=== PATIENT | male | born 1975 | race Caucasian/White ===

== ENCOUNTER 2021-12-17 19:19 | Inpatient (IN) ==
[2021-12-17] MEDS ORDERED: Acetaminophen 325 MG TABLET PO PRN (22:48)
[2021-12-17] MEDS ORDERED: Naloxone 0.4 MG/ML INJ IVP PRN (22:48)
[2021-12-17] MEDS ORDERED: Melatonin 3 MG TABLET PO PRN (22:48)
[2021-12-17] MEDS ORDERED: *HR* Dextrose 50 % in Water (Syg) 50 ML SYRINGE IVP PRN (22:54)
[2021-12-17] MEDS ORDERED: Dextrose 4 GM Chewable Tablets PO PRN ×2 (22:54)
[2021-12-17] MEDS ORDERED: D5% in Water 1,000 ML IVC PRN (22:54)
[2021-12-17] MEDS ORDERED: Ringers Solution, Lactated 1,000 ML IVC SCH (23:00)
[2021-12-17] MEDS ORDERED: 0.9 % Sodium Chloride 1,000 ML IVC SCH (23:00)
[2021-12-17] MEDS: *HR* OxyCODONE Immed Rel 5 MG TABLET PO PRN (23:53)
[2021-12-18 00:07] LABS: Bilirubin,Urine Negative (Negative); Blood,Urine Moderate (Negative); Clarity,Urine Ex.Turbid (Clear); Color,Urine Yellow (Yellow); Glucose,Urine (UA) Normal (Normal); Ketones,Urine Trace mg/dL (Negative); Leukocyte Esterase,Urine Large (Negative); Mucus,Urine Few per lpf (None-Few); Nitrite,Urine Negative (Negative); Protein,Urine 200 mg/dL (Neg-Trace); RBC,Urine 30-50 per hpf (0-3); Squamous Epithelial Cell,Urine Moderate per hpf (None-Few); Urobilinogen,Urine Normal (Normal); WBC,Urine TNTC per hpf (0-3)
[2021-12-18] MEDS: *HR* HYDROcodone/Acet 5/325 mg TABLET PO PRN ×3 (02:47→16:48)
[2021-12-18] MEDS: Ondansetron 4 MG/2 ML VIAL IVP PRN ×2 (02:48→13:33)
[2021-12-18 06:30] LABS: Basophils # 0.1 K/mcL (0.0-0.2); Basophils % 0.7 %; Eosinophils # 0.2 K/mcL (0.0-0.6); Eosinophils % 2.8 %; Hemoglobin 12.4 g/dL (12.9-16.9); Immature Granulocytes % 0.3 % (0-4); Lymphocytes # 2.1 K/mcL (0.6-4.6); Lymphocytes % 30.2 %; Mean Corpuscular HGB Conc 31.8 g/dL (31.6-35.5); Mean Corpuscular Hemoglobin 27.6 pg (28.0-33.3); Mean Corpuscular Volume 86.9 fL (83.0-100.0); Mean Platelet Volume 9.5 fL (9.4-12.4); Monocytes # 0.6 K/mcL (0.0-1.3); Monocytes % 8.7 %; Neutrophils # 4.1 K/mcL (1.6-8.9); Platelet Count 336 K/mcL (140-400); Red Blood Count 4.49 M/mcL (4.19-5.50); Red Cell Distribution Width 14.2 % (11.5-14.5); Segmented Neutrophils % 57.3 %; White Blood Count 7.1 K/mcL (4.3-11.1)
[2021-12-18 06:38] LABS: Prothrombin Time 11.6 Seconds (9.4-12.1)
[2021-12-18 06:40] LABS: Activated Partial Thrombo Time 32.9 Seconds (26.0-36.0)
[2021-12-18 06:41] LABS: Alanine Aminotransferase 6 Units/L (7-52); Albumin 3.8 g/dL (3.5-5.7); Albumin/Globulin Ratio 1.6 (1.1-2.2); Alkaline Phosphatase 91 Units/L (34-104); Aspartate Amino Transferase 10 Units/L (13-39); BUN/Creatinine Ratio 15 (6-26); Bilirubin,Total 0.5 mg/dL (0.3-1.0); Blood Urea Nitrogen 21 mg/dL (6-20); Calcium 8.7 mg/dL (8.6-10.3); Carbon Dioxide 27 mEq/L (23-29); Chloride 105 mEq/L (98-107); Globulin 2.4 g/dL (2.4-3.5); Glucose 74 mg/dL (70-105); Magnesium 1.8 mg/dL (1.6-2.6); Osmolality,Calculated 288 (280-300); Phosphorous 3.7 mg/dL (2.7-4.5); Potassium 4.2 mEq/L (3.5-5.1); Sodium 138 mEq/L (136-145); Total Protein 6.2 g/dL (6.4-8.9); eGFR For African Americans > 60 (> 60); eGFR For Non-African Americans 54 (> 60)
[2021-12-18] MEDS ORDERED: 0.9 % Sodium Chloride 500 ML ONE (09:32)
[2021-12-18] MEDS ORDERED: *HR* FentaNYL (PF) 100 MCG/2 ML VIAL IVP ONE (09:34)
[2021-12-18] MEDS ORDERED: *HR* Midazolam HCl 2 MG/2 ML VIAL IVP ONE (09:34)
[2021-12-18] MEDS: Lactobacillus 1 EACH CAP.SPRINK PO SCH ×2 (10:41→20:34)
[2021-12-18] MEDS: Nicotine 14 MG PATCH.TD24 TD SCH (10:41)
[2021-12-18] MEDS: cefTRIAXone 2,000 MG in 0.9 % Sodium Chloride 20 ML IVPB SCH (10:41)
[2021-12-18] MEDS: *HR* OxyCODONE Immed Rel 5 MG TABLET PO PRN ×2 (13:33→20:34)
[2021-12-19] MEDS: *HR* HYDROcodone/Acet 5/325 mg TABLET PO PRN (00:20)
[2021-12-19 03:01] LABS: BUN/Creatinine Ratio 15 (6-26); Blood Urea Nitrogen 19 mg/dL (6-20); Calcium 8.5 mg/dL (8.6-10.3); Carbon Dioxide 22 mEq/L (23-29); Chloride 103 mEq/L (98-107); Glucose 87 mg/dL (70-105); Osmolality,Calculated 278 (280-300); Potassium 4.9 mEq/L (3.5-5.1); Sodium 133 mEq/L (136-145); eGFR For African Americans > 60 (> 60); eGFR For Non-African Americans 59 (> 60)
[2021-12-19] MEDS: *HR* OxyCODONE Immed Rel 5 MG TABLET PO PRN (05:09)
[2021-12-19] MEDS: cefTRIAXone 2,000 MG in 0.9 % Sodium Chloride 20 ML IVPB SCH (09:22)
[2021-12-19] MEDS: Morphine Sulfate Oral CONC 10 MG/0.5 ML ORAL.SYG SL PRN ×2 (09:22→21:08)
[2021-12-19] MEDS: Lactobacillus 1 EACH CAP.SPRINK PO SCH ×2 (09:23→21:07)
[2021-12-19] MEDS: Nicotine 14 MG PATCH.TD24 TD SCH (09:23)
[2021-12-19] MEDS: Ondansetron 4 MG/2 ML VIAL IVP PRN (11:22)
[2021-12-20 02:27] LABS: BUN/Creatinine Ratio 20 (6-26); Blood Urea Nitrogen 26 mg/dL (6-20); Calcium 8.9 mg/dL (8.6-10.3); Carbon Dioxide 24 mEq/L (23-29); Chloride 103 mEq/L (98-107); Glucose 92 mg/dL (70-105); Osmolality,Calculated 284 (280-300); Potassium 4.7 mEq/L (3.5-5.1); Sodium 135 mEq/L (136-145); eGFR For African Americans > 60 (> 60); eGFR For Non-African Americans 59 (> 60)
[2021-12-20] MEDS: Morphine Sulfate Oral CONC 10 MG/0.5 ML ORAL.SYG SL PRN ×3 (03:47→14:18)
[2021-12-20 07:35] VITALS: O2SAT 97
[2021-12-20] MEDS: Lactobacillus 1 EACH CAP.SPRINK PO SCH (09:06)
[2021-12-20] MEDS: Nicotine 14 MG PATCH.TD24 TD SCH (09:07)
[2021-12-20] MEDS: cefTRIAXone 2,000 MG in 0.9 % Sodium Chloride 20 ML IVPB SCH (09:07)
[2021-12-20] MEDS: Ondansetron 4 MG/2 ML VIAL IVP PRN (10:32)
[2021-12-20 12:19] VITALS: BP 121/79; PULSE 95; TEMP 99.9
== END 2021-12-20 15:40 | disposition home or self-care (01) | DRG 720 ==
LOC: 3ANU → SUATTDRO 21:46
PROVIDERS: ADMIT Internal Medicine; ATTEND Internal Medicine

== ENCOUNTER 2022-01-05 06:46 | Observation (INO) ==
[2022-01-05] MEDS ORDERED: Ringers Solution, Lactated 1,000 ML IVC SCH (07:15)
[2022-01-05] MEDS ORDERED: Ampicillin/Sulbactam 3,000 MG in 0.9 % Sodium Chloride Mini Bag 100 ML IVPB ONE (07:16)
[2022-01-05] MEDS ORDERED: 0.9 % Sodium Chloride 500 ML ONE (07:57)
[2022-01-05] MEDS ORDERED: Ondansetron 4 MG/2 ML VIAL IVP PRN (08:01)
[2022-01-05] MEDS ORDERED: *HR* OxyCODONE Immed Rel 5 MG TABLET PO PRN (08:01)
[2022-01-05 08:17] LABS: Prothrombin Time 11.5 Seconds (9.4-12.1)
[2022-01-05] MEDS ORDERED: Lidocaine -MPF 2% 2 ML VIAL ONE (08:26)
[2022-01-05] MEDS ORDERED: *HR* Propofol 200 MG/20 ML VIAL IVP ONE (08:26)
[2022-01-05] MEDS ORDERED: *HR* Midazolam HCl 2 MG/2 ML VIAL ONE (08:26)
[2022-01-05] MEDS ORDERED: Ondansetron 4 MG/2 ML VIAL ONE (08:26)
[2022-01-05] MEDS ORDERED: *HR* FentaNYL (PF) 100 MCG/2 ML VIAL ONE (08:26)
[2022-01-05] MEDS ORDERED: Clindamycin 600 MG/50 ML 600 MG/50 ML IV.SOLN IVPB ONE (08:32)
[2022-01-05] MEDS ORDERED: *HR* Midazolam HCl 2 MG/2 ML VIAL IVP ONE (08:32)
[2022-01-05] MEDS ORDERED: *HR* FentaNYL (PF) 100 MCG/2 ML VIAL IVP ONE (08:32)
[2022-01-05] MEDS ORDERED: Isovue-300 50ML VIAL IVP ONE (09:12)
[2022-01-05] MEDS ORDERED: Isovue-250 100 ML INFUS..BTL ONE (09:21)
[2022-01-05] MEDS ORDERED: Lidocaine 1% 20 ML MDV ONE (09:21)
[2022-01-05] MEDS ORDERED: Sugammadex Sodium 200 MG/2 ML VIAL IV ONE (11:29)
[2022-01-05] MEDS ORDERED: *HR* HYDROMORPHONE 2 MG/ML VIAL ONE (11:45)
[2022-01-05] MEDS: *HR* HYDROmorphone PF 0.5 MG/0.5 ML SYRINGE IVP PRN ×2 (12:07→12:14)
[2022-01-05] MEDS ORDERED: Naloxone 0.4 MG/ML INJ IVP PRN (13:00)
[2022-01-05] MEDS: Acetaminophen IV 1,000 MG/100 ML BAG IVPB SCH ×2 (15:44→21:22)
[2022-01-05] MEDS: 0.9 % Sodium Chloride 1,000 ML IVC SCH (15:57)
[2022-01-05] MEDS: Ampicillin/Sulbactam 3,000 MG in 0.9 % Sodium Chloride Mini Bag 100 ML IVPB SCH ×2 (15:58→21:48)
[2022-01-05] MEDS: Morphine Sulfate 2 MG/ML SYRINGE IVP PRN ×2 (17:23→23:09)
[2022-01-06] MEDS: 0.9 % Sodium Chloride 1,000 ML IVC SCH ×2 (00:33→05:37)
[2022-01-06] MEDS: Acetaminophen IV 1,000 MG/100 ML BAG IVPB SCH ×3 (00:33→13:40)
[2022-01-06] MEDS: Ampicillin/Sulbactam 3,000 MG in 0.9 % Sodium Chloride Mini Bag 100 ML IVPB SCH ×4 (03:47→20:32)
[2022-01-06] MEDS: Morphine Sulfate 2 MG/ML SYRINGE IVP PRN ×4 (09:26→23:43)
[2022-01-06 11:51] LABS: Mean Corpuscular HGB Conc 31.4 g/dL (31.6-35.5); Mean Corpuscular Volume 85.8 fL (83.0-100.0); Platelet Count 399 K/mcL (140-400); Red Blood Count 4.08 M/mcL (4.19-5.50); Red Cell Distribution Width 14.2 % (11.5-14.5); White Blood Count 14.3 K/mcL (4.3-11.1)
[2022-01-06] MEDS: Ondansetron 4 MG/2 ML VIAL IVP PRN ×2 (13:39→20:59)
[2022-01-07] MEDS: Ampicillin/Sulbactam 3,000 MG in 0.9 % Sodium Chloride Mini Bag 100 ML IVPB SCH ×2 (02:55→07:47)
[2022-01-07] MEDS: Morphine Sulfate 2 MG/ML SYRINGE IVP PRN (03:14)
[2022-01-07 05:41] LABS: Hematocrit 34.9 % (37.5-50.1); Hemoglobin 10.7 g/dL (12.9-16.9)
[2022-01-07 08:52] VITALS: BP 133/84; PULSE 86; TEMP 98.2; O2SAT 97
[2022-01-10 16:42] LABS: Calculi Mass 66 mg
== END 2022-01-07 13:40 | disposition home or self-care (01) ==
LOC: 3ANU 06:46 → SAMDAY 06:46 → 3ANU 12:59
PROVIDERS: ADMIT Urology; ATTEND Urology